=== PATIENT | female | born 1990 | race Caucasian/White ===

== ENCOUNTER 2020-02-03 16:20 | Inpatient (IN) ==
[2020-02-03] MEDS ORDERED: Gadolinium Contrast Agent (WT Based) IV PRN (17:23)
[2020-02-03] MEDS ORDERED: Orphenadrine 60 MG/2 ML VIAL IM ONE (17:25)
[2020-02-03 18:06] LABS: Bilirubin,Urine Negative (Negative); Blood,Urine Negative (Negative); Clarity,Urine Clear (Clear); Color,Urine Light-Yellow (Yellow); Glucose,Urine (UA) Normal (Normal); Ketones,Urine Negative (Negative); Leukocyte Esterase,Urine Negative (Negative); Mucus,Urine Few per lpf (None-Few); Nitrite,Urine Negative (Negative); Protein,Urine 100 mg/dL (Neg-Trace); RBC,Urine 0-3 per hpf (0-3); Specific Gravity,Urine 1.016 (1.010-1.025); Squamous Epithelial Cell,Urine Few per hpf (None-Few); Urobilinogen,Urine Normal (Normal)
[2020-02-03 18:22] LABS: Basophils % 0.3 %; Eosinophils % 0.2 %; Hemoglobin 14.8 g/dL (11.5-15.4); Immature Granulocytes % 0.6 % (0-4); Lymphocytes # 1.3 K/mcL (0.6-4.6); Lymphocytes % 10.3 %; Mean Corpuscular HGB Conc 34.4 g/dL (31.6-35.5); Mean Corpuscular Hemoglobin 30.3 pg (28.0-33.3); Mean Corpuscular Volume 87.9 fL (83.0-100.0); Mean Platelet Volume 9.8 fL (9.4-12.4); Monocytes # 0.2 K/mcL (0.0-1.3); Monocytes % 1.9 %; Platelet Count 370 K/mcL (140-400); Red Blood Count 4.89 M/mcL (3.82-4.97); Segmented Neutrophils % 86.7 %; White Blood Count 12.7 K/mcL (4.3-11.1)
[2020-02-03 18:40] LABS: BUN/Creatinine Ratio 26 (6-26); Blood Urea Nitrogen 13 mg/dL (6-20); Calcium 9.9 mg/dL (8.6-10.3); Carbon Dioxide 28 mEq/L (23-29); Chloride 100 mEq/L (98-107); Glucose 125 mg/dL (70-105); Osmolality,Calculated 286 (280-300); Potassium 3.8 mEq/L (3.5-5.1); Sodium 137 mEq/L (136-145); eGFR For African Americans > 60 (> 60); eGFR For Non-African Americans > 60 (> 60)
[2020-02-03] MEDS ORDERED: *HR* HYDROmorphone (PF) 1 MG/ML SYRINGE IVP ONE (18:41)
[2020-02-03] MEDS ORDERED: *HR* FentaNYL (PF) 100 MCG/2 ML VIAL IVP STA (20:57)
[2020-02-03] MEDS ORDERED: *HR* FentaNYL (PF) 100 MCG/2 ML VIAL IVP ONE (22:30)
[2020-02-03] MEDS ORDERED: Ketorolac 15 MG/ML VIAL IVP PRN (22:37)
[2020-02-03] MEDS ORDERED: Ondansetron 4 MG/2 ML VIAL IVP PRN (22:37)
[2020-02-03] MEDS ORDERED: Naloxone 0.4 MG/ML INJ IVP PRN (22:37)
[2020-02-03] MEDS ORDERED: D5% in Water 1,000 ML IVC PRN (22:40)
[2020-02-03] MEDS ORDERED: Dextrose Gel 15 GM/37.5 ML TUBE PO PRN ×2 (22:40)
[2020-02-03] MEDS ORDERED: *HR* Dextrose 50 % in Water (Vial) 50 ML VIAL IVP PRN (22:40)
[2020-02-03] MEDS ORDERED: Gabapentin 300 MG CAPSULE PO ONE (23:52)
[2020-02-04] MEDS: Insulin LISPRO 300 UNITS/3 ML VIAL SQ SCH ×5 (00:06→16:51)
[2020-02-04] MEDS: Ringers Solution, Lactated 1,000 ML IVC SCH ×2 (00:17→07:46)
[2020-02-04] MEDS: *HR* HYDROmorphone (PF) 1 MG/ML SYRINGE IVP PRN ×10 (00:17→23:20)
[2020-02-04 05:59] LABS: Basophils % 0.3 %; Eosinophils # 0.2 K/mcL (0.0-0.6); Eosinophils % 1.4 %; Hematocrit 40.2 % (35.3-44.9); Hemoglobin 13.8 g/dL (11.5-15.4); Immature Granulocytes % 0.5 % (0-4); Lymphocytes # 3.3 K/mcL (0.6-4.6); Lymphocytes % 27.8 %; Mean Corpuscular HGB Conc 34.3 g/dL (31.6-35.5); Mean Corpuscular Hemoglobin 31.2 pg (28.0-33.3); Mean Platelet Volume 9.9 fL (9.4-12.4); Monocytes # 0.7 K/mcL (0.0-1.3); Monocytes % 5.8 %; Neutrophils # 7.6 K/mcL (1.6-8.9); Platelet Count 328 K/mcL (140-400); Red Blood Count 4.42 M/mcL (3.82-4.97); Segmented Neutrophils % 64.2 %; White Blood Count 11.8 K/mcL (4.3-11.1)
[2020-02-04 06:03] LABS: INR 1.1; Prothrombin Time 12.9 Seconds (9.4-12.1)
[2020-02-04 06:20] LABS: BUN/Creatinine Ratio 34 (6-26); Blood Urea Nitrogen 17 mg/dL (6-20); Calcium 9.7 mg/dL (8.6-10.3); Carbon Dioxide 28 mEq/L (23-29); Chloride 101 mEq/L (98-107); Glucose 94 mg/dL (70-105); Magnesium 2.2 mg/dL (1.6-2.6); Osmolality,Calculated 289 (280-300); Potassium 3.3 mEq/L (3.5-5.1); Sodium 139 mEq/L (136-145); eGFR For African Americans > 60 (> 60); eGFR For Non-African Americans > 60 (> 60)
[2020-02-04] MEDS: hydroCHLOROthiazide 25 MG TABLET PO SCH (07:37)
[2020-02-04] MEDS ORDERED: *HR* OxyCODONE Immed Rel 5 MG TABLET PO PRN (10:47)
[2020-02-04] MEDS ORDERED: Potassium Chloride Elixir 20 MEQ/15 ML UDC PO ONE (11:15)
[2020-02-04] MEDS: *HR* OxyCODONE Immed Rel 5 MG TABLET PO PRN ×3 (11:35→21:02)
[2020-02-04] MEDS: *HR* Heparin 5,000 UNIT/ML VIAL SQ SCH (16:14)
[2020-02-04] MEDS ORDERED: Ketorolac 30 MG/ML VIAL IVP ONE (16:21)
[2020-02-04] MEDS: Insulin DETEMIR 100 UNIT/ML X5UNITS SQ SCH (21:06)
[2020-02-05] MEDS: *HR* OxyCODONE Immed Rel 5 MG TABLET PO PRN ×5 (01:18→21:20)
[2020-02-05] MEDS: *HR* HYDROmorphone (PF) 1 MG/ML SYRINGE IVP PRN ×8 (02:44→22:14)
[2020-02-05] MEDS: *HR* Heparin 5,000 UNIT/ML VIAL SQ SCH ×2 (06:23→17:43)
[2020-02-05] MEDS: Insulin LISPRO 300 UNITS/3 ML VIAL SQ SCH ×3 (07:25→17:20)
[2020-02-05] MEDS: hydroCHLOROthiazide 25 MG TABLET PO SCH (07:25)
[2020-02-05] MEDS: predniSONE 20 MG TABLET PO SCH (14:34)
[2020-02-05] MEDS: tiZANidine 4 MG TABLET PO PRN (14:34)
[2020-02-05] MEDS: Insulin DETEMIR 100 UNIT/ML X5UNITS SQ SCH (19:51)
[2020-02-06] MEDS: tiZANidine 4 MG TABLET PO PRN ×2 (00:02→18:01)
[2020-02-06] MEDS: *HR* HYDROmorphone (PF) 1 MG/ML SYRINGE IVP PRN ×7 (01:02→23:55)
[2020-02-06] MEDS: *HR* OxyCODONE Immed Rel 5 MG TABLET PO PRN (03:01)
[2020-02-06] MEDS: *HR* Heparin 5,000 UNIT/ML VIAL SQ SCH ×2 (05:25→18:55)
[2020-02-06 06:59] LABS: Hematocrit 36.7 % (35.3-44.9); Hemoglobin 12.6 g/dL (11.5-15.4); Mean Corpuscular HGB Conc 34.3 g/dL (31.6-35.5); Mean Corpuscular Hemoglobin 31.3 pg (28.0-33.3); Mean Corpuscular Volume 91.3 fL (83.0-100.0); Mean Platelet Volume 9.6 fL (9.4-12.4); Platelet Count 265 K/mcL (140-400); Red Blood Count 4.02 M/mcL (3.82-4.97); White Blood Count 9.5 K/mcL (4.3-11.1)
[2020-02-06 07:22] LABS: BUN/Creatinine Ratio 35 (6-26); Blood Urea Nitrogen 17 mg/dL (6-20); Calcium 9.6 mg/dL (8.6-10.3); Carbon Dioxide 29 mEq/L (23-29); Chloride 102 mEq/L (98-107); Glucose 93 mg/dL (70-105); Osmolality,Calculated 287 (280-300); Potassium 4.1 mEq/L (3.5-5.1); Sodium 138 mEq/L (136-145); eGFR For African Americans > 60 (> 60); eGFR For Non-African Americans > 60 (> 60)
[2020-02-06] MEDS: hydroCHLOROthiazide 25 MG TABLET PO SCH (08:48)
[2020-02-06] MEDS: predniSONE 20 MG TABLET PO SCH (08:50)
[2020-02-06] MEDS: Insulin LISPRO 300 UNITS/3 ML VIAL SQ SCH ×3 (09:27→17:13)
[2020-02-06] MEDS: Insulin DETEMIR 100 UNIT/ML X5UNITS SQ SCH (21:38)
[2020-02-07] MEDS: Acetaminophen 325 MG TABLET PO PRN (02:30)
[2020-02-07 02:36] LABS: Hematocrit 38.1 % (35.3-44.9); Hemoglobin 12.7 g/dL (11.5-15.4); Mean Corpuscular HGB Conc 33.3 g/dL (31.6-35.5); Mean Corpuscular Hemoglobin 30.4 pg (28.0-33.3); Mean Corpuscular Volume 91.1 fL (83.0-100.0); Mean Platelet Volume 9.9 fL (9.4-12.4); Platelet Count 274 K/mcL (140-400); Red Blood Count 4.18 M/mcL (3.82-4.97); White Blood Count 10.4 K/mcL (4.3-11.1)
[2020-02-07 02:53] LABS: BUN/Creatinine Ratio 38 (6-26); Blood Urea Nitrogen 20 mg/dL (6-20); Calcium 9.6 mg/dL (8.6-10.3); Carbon Dioxide 28 mEq/L (23-29); Chloride 101 mEq/L (98-107); Glucose 97 mg/dL (70-105); Osmolality,Calculated 287 (280-300); Potassium 3.9 mEq/L (3.5-5.1); Sodium 137 mEq/L (136-145); eGFR For African Americans > 60 (> 60); eGFR For Non-African Americans > 60 (> 60)
[2020-02-07] MEDS: *HR* Heparin 5,000 UNIT/ML VIAL SQ SCH ×2 (05:11→18:20)
[2020-02-07] MEDS: *HR* OxyCODONE Immed Rel 5 MG TABLET PO PRN ×5 (05:12→22:51)
[2020-02-07] MEDS: *HR* HYDROmorphone (PF) 1 MG/ML SYRINGE IVP PRN (06:48)
[2020-02-07] MEDS: Insulin LISPRO 300 UNITS/3 ML VIAL SQ SCH ×3 (07:42→18:26)
[2020-02-07] MEDS: predniSONE 20 MG TABLET PO SCH (07:49)
[2020-02-07] MEDS: hydroCHLOROthiazide 25 MG TABLET PO SCH (07:49)
[2020-02-07] MEDS: MethylPREDNISolone 40 MG/ML VIAL IVP SCH (18:20)
[2020-02-07] MEDS: Gabapentin 300 MG CAPSULE PO SCH (21:20)
[2020-02-07] MEDS: tiZANidine 4 MG TABLET PO PRN (21:20)
[2020-02-07] MEDS: Insulin DETEMIR 100 UNIT/ML X5UNITS SQ SCH (22:52)
[2020-02-08] MEDS: MethylPREDNISolone 40 MG/ML VIAL IVP SCH ×4 (00:50→23:40)
[2020-02-08] MEDS: *HR* OxyCODONE Immed Rel 5 MG TABLET PO PRN ×5 (02:59→22:23)
[2020-02-08] MEDS: Acetaminophen 325 MG TABLET PO PRN (05:35)
[2020-02-08] MEDS: *HR* Heparin 5,000 UNIT/ML VIAL SQ SCH ×2 (05:35→17:33)
[2020-02-08] MEDS: tiZANidine 4 MG TABLET PO PRN ×3 (05:35→23:40)
[2020-02-08] MEDS: Insulin LISPRO 300 UNITS/3 ML VIAL SQ SCH ×3 (08:38→17:37)
[2020-02-08] MEDS: hydroCHLOROthiazide 25 MG TABLET PO SCH (08:39)
[2020-02-08] MEDS: Gabapentin 300 MG CAPSULE PO SCH ×3 (08:39→22:11)
[2020-02-08] MEDS: Insulin DETEMIR 100 UNIT/ML X5UNITS SQ SCH (22:11)
[2020-02-09] MEDS: *HR* Heparin 5,000 UNIT/ML VIAL SQ SCH ×2 (05:46→20:39)
[2020-02-09] MEDS: *HR* OxyCODONE Immed Rel 5 MG TABLET PO PRN ×4 (05:50→20:50)
[2020-02-09] MEDS: MethylPREDNISolone 40 MG/ML VIAL IVP SCH ×3 (10:24→23:54)
[2020-02-09] MEDS: Insulin LISPRO 300 UNITS/3 ML VIAL SQ SCH ×3 (10:27→16:02)
[2020-02-09] MEDS: hydroCHLOROthiazide 25 MG TABLET PO SCH (10:27)
[2020-02-09] MEDS: Gabapentin 300 MG CAPSULE PO SCH ×3 (10:30→20:40)
[2020-02-09] MEDS: tiZANidine 4 MG TABLET PO PRN ×2 (10:43→20:50)
[2020-02-09] MEDS: Insulin DETEMIR 100 UNIT/ML X5UNITS SQ SCH (21:50)
[2020-02-10] MEDS: *HR* OxyCODONE Immed Rel 5 MG TABLET PO PRN ×4 (00:53→13:20)
[2020-02-10] MEDS: *HR* Heparin 5,000 UNIT/ML VIAL SQ SCH ×2 (05:30→17:05)
[2020-02-10] MEDS: Insulin LISPRO 300 UNITS/3 ML VIAL SQ SCH ×3 (07:54→17:07)
[2020-02-10] MEDS: tiZANidine 4 MG TABLET PO PRN ×2 (08:14→17:04)
[2020-02-10] MEDS: Acetaminophen 325 MG TABLET PO PRN ×2 (08:14→17:04)
[2020-02-10] MEDS: MethylPREDNISolone 40 MG/ML VIAL IVP SCH ×2 (08:14→17:09)
[2020-02-10] MEDS: Gabapentin 300 MG CAPSULE PO SCH ×3 (08:14→21:24)
[2020-02-10] MEDS: hydroCHLOROthiazide 25 MG TABLET PO SCH (08:14)
[2020-02-10] MEDS: Sennosides/Docusate Sodium TABLET PO SCH (17:03)
[2020-02-10] MEDS: *HR* OxyCODONE Immed Rel 15 MG TABLET PO PRN ×2 (17:04→21:24)
[2020-02-10] MEDS: Insulin DETEMIR 100 UNIT/ML X5UNITS SQ SCH (21:24)
[2020-02-11] MEDS: Acetaminophen 325 MG TABLET PO PRN ×2 (00:15→12:32)
[2020-02-11] MEDS: *HR* OxyCODONE Immed Rel 15 MG TABLET PO PRN ×5 (01:43→20:01)
[2020-02-11] MEDS: tiZANidine 4 MG TABLET PO PRN ×3 (01:44→20:02)
[2020-02-11] MEDS: MethylPREDNISolone 40 MG/ML VIAL IVP SCH (05:52)
[2020-02-11] MEDS: *HR* Heparin 5,000 UNIT/ML VIAL SQ SCH ×2 (05:52→17:19)
[2020-02-11] MEDS: Insulin LISPRO 300 UNITS/3 ML VIAL SQ SCH ×3 (07:42→17:19)
[2020-02-11] MEDS: hydroCHLOROthiazide 25 MG TABLET PO SCH (08:45)
[2020-02-11] MEDS: Gabapentin 300 MG CAPSULE PO SCH ×3 (08:45→21:23)
[2020-02-11] MEDS: Sennosides/Docusate Sodium TABLET PO SCH (08:45)
[2020-02-11] MEDS: predniSONE 20 MG TABLET PO SCH (14:52)
[2020-02-11] MEDS: Insulin DETEMIR 100 UNIT/ML X5UNITS SQ SCH (20:02)
[2020-02-11] MEDS: polyethylene glycoL 3350 17 GM POWD.PACK PO PRN (21:23)
[2020-02-11] MEDS ORDERED: Milk and Molasses Enema 200 ML RC ONE (22:17)
[2020-02-11] MEDS: *HR* HYDROmorphone (PF) 1 MG/ML SYRINGE IVP PRN (22:46)
[2020-02-12] MEDS: *HR* OxyCODONE Immed Rel 15 MG TABLET PO PRN ×4 (01:20→18:33)
[2020-02-12] MEDS: *HR* HYDROmorphone (PF) 1 MG/ML SYRINGE IVP PRN ×6 (04:01→20:52)
[2020-02-12] MEDS: *HR* Heparin 5,000 UNIT/ML VIAL SQ SCH ×2 (05:54→16:31)
[2020-02-12] MEDS: tiZANidine 4 MG TABLET PO PRN ×2 (05:56→14:15)
[2020-02-12] MEDS: Insulin LISPRO 300 UNITS/3 ML VIAL SQ SCH ×3 (07:29→16:39)
[2020-02-12] MEDS: Gabapentin 300 MG CAPSULE PO SCH ×3 (08:21→20:51)
[2020-02-12] MEDS: hydroCHLOROthiazide 25 MG TABLET PO SCH (08:21)
[2020-02-12] MEDS: predniSONE 20 MG TABLET PO SCH (08:21)
[2020-02-12] MEDS: Sennosides/Docusate Sodium TABLET PO SCH (08:22)
[2020-02-12] MEDS ORDERED: Milk and Molasses Enema 200 ML RC ONE (09:02)
[2020-02-12] MEDS ORDERED: Ketorolac 30 MG/ML VIAL IVP ONE (09:27)
[2020-02-12] MEDS: Acetaminophen 325 MG TABLET PO PRN (14:18)
[2020-02-12] MEDS: *HR* LORazepam 1 MG TABLET PO PRN ×2 (17:36→22:20)
[2020-02-12] MEDS: Insulin DETEMIR 100 UNIT/ML X5UNITS SQ SCH (20:52)
[2020-02-13] MEDS: *HR* OxyCODONE Immed Rel 15 MG TABLET PO PRN ×5 (00:20→22:35)
[2020-02-13] MEDS: tiZANidine 4 MG TABLET PO PRN ×2 (00:20→19:48)
[2020-02-13] MEDS: *HR* HYDROmorphone (PF) 1 MG/ML SYRINGE IVP PRN ×5 (04:02→19:48)
[2020-02-13] MEDS: polyethylene glycoL 3350 17 GM POWD.PACK PO PRN (04:07)
[2020-02-13] MEDS: *HR* LORazepam 1 MG TABLET PO PRN ×4 (05:15→22:35)
[2020-02-13] MEDS: *HR* Heparin 5,000 UNIT/ML VIAL SQ SCH ×2 (05:15→17:38)
[2020-02-13 05:57] LABS: Hematocrit 42.4 % (35.3-44.9); Mean Corpuscular HGB Conc 34.7 g/dL (31.6-35.5); Mean Corpuscular Hemoglobin 31.1 pg (28.0-33.3); Mean Corpuscular Volume 89.8 fL (83.0-100.0); Mean Platelet Volume 10.3 fL (9.4-12.4); Platelet Count 332 K/mcL (140-400); Red Blood Count 4.72 M/mcL (3.82-4.97); Red Cell Distribution Width 11.9 % (11.5-14.5)
[2020-02-13 05:58] LABS: Hemoglobin 14.7 g/dL (11.5-15.4)
[2020-02-13 06:24] LABS: BUN/Creatinine Ratio 41 (6-26); Blood Urea Nitrogen 24 mg/dL (6-20); Calcium 9.8 mg/dL (8.6-10.3); Carbon Dioxide 31 mEq/L (23-29); Chloride 97 mEq/L (98-107); Glucose 96 mg/dL (70-105); Osmolality,Calculated 290 (280-300); Potassium 3.4 mEq/L (3.5-5.1); Sodium 138 mEq/L (136-145); eGFR For African Americans > 60 (> 60); eGFR For Non-African Americans > 60 (> 60)
[2020-02-13] MEDS: Insulin LISPRO 300 UNITS/3 ML VIAL SQ SCH ×3 (08:28→17:38)
[2020-02-13] MEDS: predniSONE 20 MG TABLET PO SCH (08:40)
[2020-02-13] MEDS: Sennosides/Docusate Sodium TABLET PO SCH (08:40)
[2020-02-13] MEDS: hydroCHLOROthiazide 25 MG TABLET PO SCH (08:40)
[2020-02-13] MEDS: Gabapentin 300 MG CAPSULE PO SCH ×3 (08:40→19:48)
[2020-02-13] MEDS ORDERED: methylPREDNISolone 125 MG/2 ML VIAL IVP ONE (10:17)
[2020-02-13] MEDS ORDERED: Methylnaltrexone 12 MG/0.6 ML SYRINGE SQ ONE (16:55)
[2020-02-13] MEDS: Insulin DETEMIR 100 UNIT/ML X5UNITS SQ SCH (22:38)
[2020-02-14] MEDS: *HR* HYDROmorphone (PF) 1 MG/ML SYRINGE IVP PRN ×5 (01:01→20:17)
[2020-02-14] MEDS ORDERED: CLEAR EYES NATURAL TEARS 15 ML BOTTLE BOTH EYES PRN (01:11)
[2020-02-14] MEDS: *HR* OxyCODONE Immed Rel 15 MG TABLET PO PRN ×5 (03:10→22:14)
[2020-02-14] MEDS: *HR* LORazepam 1 MG TABLET PO PRN ×5 (03:10→22:14)
[2020-02-14 05:27] LABS: Hematocrit 41.4 % (35.3-44.9); Hemoglobin 13.8 g/dL (11.5-15.4); Mean Corpuscular HGB Conc 33.3 g/dL (31.6-35.5); Mean Platelet Volume 10.6 fL (9.4-12.4); Platelet Count 302 K/mcL (140-400); Red Cell Distribution Width 11.9 % (11.5-14.5); White Blood Count 17.5 K/mcL (4.3-11.1)
[2020-02-14 05:38] LABS: BUN/Creatinine Ratio 38 (6-26); Blood Urea Nitrogen 20 mg/dL (6-20); Calcium 9.5 mg/dL (8.6-10.3); Carbon Dioxide 29 mEq/L (23-29); Chloride 100 mEq/L (98-107); Glucose 128 mg/dL (70-105); Osmolality,Calculated 290 (280-300); Potassium 3.5 mEq/L (3.5-5.1); Sodium 138 mEq/L (136-145); eGFR For African Americans > 60 (> 60); eGFR For Non-African Americans > 60 (> 60)
[2020-02-14] MEDS: *HR* Heparin 5,000 UNIT/ML VIAL SQ SCH ×2 (05:42→17:45)
[2020-02-14] MEDS: Insulin LISPRO 300 UNITS/3 ML VIAL SQ SCH ×3 (07:56→17:44)
[2020-02-14] MEDS: Gabapentin 300 MG CAPSULE PO SCH ×3 (08:02→20:17)
[2020-02-14] MEDS: predniSONE 20 MG TABLET PO SCH (08:02)
[2020-02-14] MEDS: Sennosides/Docusate Sodium TABLET PO SCH (08:02)
[2020-02-14] MEDS: hydroCHLOROthiazide 25 MG TABLET PO SCH (08:02)
[2020-02-14] MEDS: polyethylene glycoL 3350 17 GM POWD.PACK PO PRN (08:17)
[2020-02-14] MEDS: Insulin DETEMIR 100 UNIT/ML X5UNITS SQ SCH (20:18)
[2020-02-14] MEDS: tiZANidine 4 MG TABLET PO PRN (22:14)
[2020-02-14] MEDS ORDERED: Lactulose Oral Soln 20 GM/30 ML UDC PO ONE (22:50)
[2020-02-15] MEDS: *HR* HYDROmorphone (PF) 1 MG/ML SYRINGE IVP PRN ×7 (01:35→20:38)
[2020-02-15] MEDS: *HR* LORazepam 1 MG TABLET PO PRN ×5 (03:01→23:02)
[2020-02-15] MEDS: *HR* OxyCODONE Immed Rel 15 MG TABLET PO PRN (03:02)
[2020-02-15] MEDS ORDERED: Milk and Molasses Enema 200 ML RC ONE (03:55)
[2020-02-15] MEDS: *HR* Heparin 5,000 UNIT/ML VIAL SQ SCH ×2 (06:09→17:56)
[2020-02-15] MEDS: tiZANidine 4 MG TABLET PO PRN ×2 (06:09→23:02)
[2020-02-15] MEDS: Insulin LISPRO 300 UNITS/3 ML VIAL SQ SCH ×3 (08:02→16:09)
[2020-02-15] MEDS: Gabapentin 300 MG CAPSULE PO SCH ×3 (08:04→21:14)
[2020-02-15] MEDS: *HR* OxyCODONE Immed Rel 5 MG TABLET PO PRN (08:04)
[2020-02-15] MEDS: hydroCHLOROthiazide 25 MG TABLET PO SCH (08:04)
[2020-02-15] MEDS: predniSONE 20 MG TABLET PO SCH (08:05)
[2020-02-15] MEDS: Sennosides/Docusate Sodium TABLET PO SCH (08:06)
[2020-02-15] MEDS: polyethylene glycoL 3350 17 GM POWD.PACK PO PRN (09:43)
[2020-02-15] MEDS: Insulin DETEMIR 100 UNIT/ML X5UNITS SQ SCH (21:14)
[2020-02-15] MEDS ORDERED: hydrOXYzine pamoate 25 MG CAPSULE PO STA (23:53)
[2020-02-16] MEDS: *HR* HYDROmorphone (PF) 1 MG/ML SYRINGE IVP PRN ×3 (04:09→14:06)
[2020-02-16] MEDS: *HR* LORazepam 1 MG TABLET PO PRN ×4 (05:50→21:37)
[2020-02-16] MEDS: *HR* Heparin 5,000 UNIT/ML VIAL SQ SCH ×2 (05:50→17:23)
[2020-02-16] MEDS: *HR* OxyCODONE Immed Rel 15 MG TABLET PO PRN ×3 (06:37→16:14)
[2020-02-16] MEDS: Insulin LISPRO 300 UNITS/3 ML VIAL SQ SCH ×3 (07:33→17:23)
[2020-02-16] MEDS: hydroCHLOROthiazide 25 MG TABLET PO SCH (08:20)
[2020-02-16] MEDS: predniSONE 20 MG TABLET PO SCH (08:26)
[2020-02-16] MEDS: Gabapentin 300 MG CAPSULE PO SCH ×3 (08:26→21:33)
[2020-02-16] MEDS: Sennosides/Docusate Sodium TABLET PO SCH (08:26)
[2020-02-16] MEDS: polyethylene glycoL 3350 17 GM POWD.PACK PO PRN (08:33)
[2020-02-16] MEDS ORDERED: Methylnaltrexone 12 MG/0.6 ML SYRINGE SQ ONE (11:15)
[2020-02-16] MEDS: tiZANidine 4 MG TABLET PO PRN (18:35)
[2020-02-16] MEDS: *HR* OxyCODONE Immed Rel 5 MG TABLET PO PRN (20:14)
[2020-02-16] MEDS: Insulin DETEMIR 100 UNIT/ML X5UNITS SQ SCH (21:37)
[2020-02-16] MEDS ORDERED: *HR* LORazepam 2 MG/ML VIAL IVP ONE (23:27)
[2020-02-17] MEDS: *HR* OxyCODONE Immed Rel 5 MG TABLET PO PRN ×5 (01:31→20:46)
[2020-02-17] MEDS ORDERED: *HR* HYDROmorphone (PF) 1 MG/ML SYRINGE IVP ONE (01:48)
[2020-02-17] MEDS: tiZANidine 4 MG TABLET PO PRN ×3 (04:03→23:19)
[2020-02-17] MEDS: *HR* Heparin 5,000 UNIT/ML VIAL SQ SCH ×2 (06:02→17:49)
[2020-02-17] MEDS: Sennosides/Docusate Sodium TABLET PO SCH (07:59)
[2020-02-17] MEDS: hydroCHLOROthiazide 25 MG TABLET PO SCH (07:59)
[2020-02-17] MEDS: predniSONE 20 MG TABLET PO SCH (07:59)
[2020-02-17] MEDS: Gabapentin 300 MG CAPSULE PO SCH ×3 (07:59→20:46)
[2020-02-17] MEDS: *HR* LORazepam 1 MG TABLET PO PRN ×4 (07:59→20:46)
[2020-02-17] MEDS: Insulin LISPRO 300 UNITS/3 ML VIAL SQ SCH ×3 (08:15→16:38)
[2020-02-17] MEDS: *HR* HYDROmorphone (PF) 1 MG/ML SYRINGE IVP PRN ×4 (08:59→21:41)
[2020-02-17] MEDS ORDERED: Fluconazole 150 MG TABLET PO PRN (14:18)
[2020-02-17] MEDS: polyethylene glycoL 3350 17 GM POWD.PACK PO PRN (14:39)
[2020-02-17] MEDS: Insulin DETEMIR 100 UNIT/ML X5UNITS SQ SCH (20:54)
[2020-02-17] MEDS: clonazePAM 1 MG TABLET PO SCH (21:35)
[2020-02-18] MEDS: Acetaminophen 325 MG TABLET PO PRN ×4 (00:11→23:57)
[2020-02-18] MEDS: *HR* OxyCODONE Immed Rel 5 MG TABLET PO PRN ×6 (00:48→21:48)
[2020-02-18 01:04] LABS: Basophils % 0.2 %; Eosinophils # 0.1 K/mcL (0.0-0.6); Eosinophils % 0.5 %; Hematocrit 41.5 % (35.3-44.9); Hemoglobin 13.7 g/dL (11.5-15.4); Lymphocytes # 4.6 K/mcL (0.6-4.6); Lymphocytes % 27.6 %; Mean Corpuscular Volume 90.8 fL (83.0-100.0); Mean Platelet Volume 10.2 fL (9.4-12.4); Monocytes # 0.8 K/mcL (0.0-1.3); Monocytes % 4.7 %; Platelet Count 318 K/mcL (140-400); Red Blood Count 4.57 M/mcL (3.82-4.97); Red Cell Distribution Width 12.1 % (11.5-14.5); White Blood Count 16.7 K/mcL (4.3-11.1)
[2020-02-18 01:24] LABS: BUN/Creatinine Ratio 41 (6-26); Blood Urea Nitrogen 26 mg/dL (6-20); Calcium 9.2 mg/dL (8.6-10.3); Carbon Dioxide 27 mEq/L (23-29); Chloride 99 mEq/L (98-107); Glucose 210 mg/dL (70-105); Osmolality,Calculated 293 (280-300); Potassium 3.5 mEq/L (3.5-5.1); Sodium 136 mEq/L (136-145); eGFR For African Americans > 60 (> 60); eGFR For Non-African Americans > 60 (> 60)
[2020-02-18 01:55] LABS: Platelet Estimate Normal (Normal); Reactive Lymphocytes Present (Not Present)
[2020-02-18] MEDS: *HR* HYDROmorphone (PF) 1 MG/ML SYRINGE IVP PRN ×5 (04:51→23:56)
[2020-02-18] MEDS: *HR* Heparin 5,000 UNIT/ML VIAL SQ SCH ×2 (05:52→16:40)
[2020-02-18] MEDS: Insulin LISPRO 300 UNITS/3 ML VIAL SQ SCH ×3 (08:13→16:40)
[2020-02-18] MEDS: Gabapentin 300 MG CAPSULE PO SCH ×3 (08:18→19:39)
[2020-02-18] MEDS: hydroCHLOROthiazide 25 MG TABLET PO SCH (08:19)
[2020-02-18] MEDS: clonazePAM 1 MG TABLET PO SCH ×2 (08:19→19:39)
[2020-02-18] MEDS: predniSONE 20 MG TABLET PO SCH (08:19)
[2020-02-18] MEDS: Sennosides/Docusate Sodium TABLET PO SCH (08:19)
[2020-02-18] MEDS: tiZANidine 4 MG TABLET PO PRN ×2 (08:20→16:41)
[2020-02-18] MEDS: polyethylene glycoL 3350 17 GM POWD.PACK PO PRN (11:38)
[2020-02-18] MEDS: hydrOXYzine pamoate 25 MG CAPSULE PO PRN ×2 (13:05→23:55)
[2020-02-18] MEDS: Insulin DETEMIR 100 UNIT/ML X5UNITS SQ SCH (21:48)
[2020-02-19] MEDS: *HR* OxyCODONE Immed Rel 5 MG TABLET PO PRN ×4 (02:13→18:40)
[2020-02-19] MEDS: tiZANidine 4 MG TABLET PO PRN ×3 (02:13→21:03)
[2020-02-19] MEDS: *HR* HYDROmorphone (PF) 1 MG/ML SYRINGE IVP PRN ×4 (06:04→21:02)
[2020-02-19] MEDS: *HR* Heparin 5,000 UNIT/ML VIAL SQ SCH ×2 (06:05→18:40)
[2020-02-19] MEDS: Insulin LISPRO 300 UNITS/3 ML VIAL SQ SCH ×3 (08:20→16:32)
[2020-02-19] MEDS: Gabapentin 300 MG CAPSULE PO SCH ×3 (08:26→21:03)
[2020-02-19] MEDS: predniSONE 20 MG TABLET PO SCH (08:27)
[2020-02-19] MEDS: clonazePAM 1 MG TABLET PO SCH ×2 (08:27→21:03)
[2020-02-19] MEDS: hydroCHLOROthiazide 25 MG TABLET PO SCH (08:27)
[2020-02-19] MEDS: Sennosides/Docusate Sodium TABLET PO SCH (08:27)
[2020-02-19] MEDS: hydrOXYzine pamoate 25 MG CAPSULE PO PRN ×2 (09:47→18:40)
[2020-02-19] MEDS ORDERED: *HR* LORazepam 2 MG/ML VIAL IVP ONE (15:31)
[2020-02-19] MEDS: Acetaminophen 325 MG TABLET PO PRN (16:18)
[2020-02-19 17:43] LABS: Adenovirus Not Detected (Not Detect); Bordetella Pertussis Not Detected (Not Detect); Chlamydophila pneumoniae Not Detected (Not Detect); Coronavirus 229E Not Detected (Not Detect); Coronavirus HKU1 Not Detected (Not Detect); Coronavirus NL63 Not Detected (Not Detect); Coronavirus OC43 Not Detected (Not Detect); Human Metapneumovirus Not Detected (Not Detect); Human Rhinovirus/Enterovirus Not Detected (Not Detect); Influenza A Subtype 2009 H1 Not Detected (Not Detect); Influenza B Not Detected (Not Detect); Mycoplasma pneumoniae Not Detected (Not Detect); Parainfluenza Virus 1 Not Detected (Not Detect); Parainfluenza Virus 2 Not Detected (Not Detect); Parainfluenza Virus 3 Not Detected (Not Detect); Parainfluenza Virus 4 Not Detected (Not Detect); Respiratory Syncytial Virus Not Detected (Not Detect); SARS-CoV-2 Not Detected (Not Detect)
[2020-02-19 18:54] VITALS: BP 137/93
[2020-02-19] MEDS: Insulin DETEMIR 100 UNIT/ML X5UNITS SQ SCH (21:06)
[2020-02-20] MEDS ORDERED: Bacitracin 50,000 UNIT, Polymyxin B Sulfate 500,000 UNIT, Sodium Chloride IRRigation 1,... IR ONE (16:30)
== END 2020-02-19 21:19 | DRG 347 ==
LOC: 3NENU 16:20 → EMEROOARM 16:20 → SUATTDRO 22:31 → 3NENU 23:27 → SUATTDRO 02-04 16:02
PROVIDERS: ADMIT Internal Medicine; ATTEND Internal Medicine

== ENCOUNTER 2020-02-22 14:06 | Observation (INO) ==
[2020-02-22] MEDS ORDERED: *HR* FentaNYL (PF) 100 MCG/2 ML VIAL IVP ONE (14:43)
[2020-02-22] MEDS ORDERED: 0.9 % Sodium Chloride 1,000 ML IVC ONE (14:43)
[2020-02-22 15:11] LABS: Basophils % 0.2 %; Eosinophils # 0.1 K/mcL (0.0-0.6); Eosinophils % 0.3 %; Hematocrit 41.5 % (35.3-44.9); Hemoglobin 13.8 g/dL (11.5-15.4); Mean Corpuscular HGB Conc 33.3 g/dL (31.6-35.5); Mean Corpuscular Hemoglobin 29.7 pg (28.0-33.3); Mean Corpuscular Volume 89.4 fL (83.0-100.0); Mean Platelet Volume 9.6 fL (9.4-12.4); Monocytes # 0.4 K/mcL (0.0-1.3); Monocytes % 2.8 %; Neutrophils # 11.9 K/mcL (1.6-8.9); Platelet Count 329 K/mcL (140-400); Red Blood Count 4.64 M/mcL (3.82-4.97); Red Cell Distribution Width 12.2 % (11.5-14.5); Segmented Neutrophils % 81.7 %; White Blood Count 14.6 K/mcL (4.3-11.1)
[2020-02-22 15:28] LABS: BUN/Creatinine Ratio 40 (6-26); Blood Urea Nitrogen 21 mg/dL (6-20); Calcium 9.9 mg/dL (8.6-10.3); Carbon Dioxide 27 mEq/L (23-29); Chloride 99 mEq/L (98-107); Glucose 124 mg/dL (70-105); Osmolality,Calculated 288 (280-300); Potassium 3.7 mEq/L (3.5-5.1); Sodium 137 mEq/L (136-145); eGFR For African Americans > 60 (> 60); eGFR For Non-African Americans > 60 (> 60)
[2020-02-22 16:05] LABS: Bilirubin,Urine Negative (Negative); Blood,Urine Negative (Negative); Clarity,Urine Clear (Clear); Color,Urine Colorless (Yellow); Glucose,Urine (UA) Normal (Normal); Ketones,Urine Negative (Negative); Leukocyte Esterase,Urine Negative (Negative); Nitrite,Urine Negative (Negative); PH,Urine 6.5 pH Units (5.0-8.0); Protein,Urine Negative (Neg-Trace); Specific Gravity,Urine 1.011 (1.010-1.025); Urobilinogen,Urine Normal (Normal)
[2020-02-22] MEDS ORDERED: *HR* HYDROmorphone 2 MG TABLET PO ONE (16:56)
[2020-02-22] MEDS ORDERED: Dextrose Gel 15 GM/37.5 ML TUBE PO PRN ×2 (16:58)
[2020-02-22] MEDS ORDERED: D5% in Water 1,000 ML IVC PRN (16:58)
[2020-02-22] MEDS ORDERED: *HR* Dextrose 50 % in Water (Vial) 50 ML VIAL IVP PRN (16:58)
[2020-02-22] MEDS ORDERED: Sennosides 8.6 MG TABLET PO PRN (17:00)
[2020-02-22] MEDS ORDERED: polyethylene glycoL 3350 17 GM POWD.PACK PO PRN (17:01)
[2020-02-22] MEDS ORDERED: Acetaminophen 325 MG TABLET PO PRN (17:02)
[2020-02-22] MEDS ORDERED: Ondansetron 4 MG/2 ML VIAL IVP PRN (17:02)
[2020-02-22] MEDS ORDERED: Naloxone 0.4 MG/ML INJ IVP PRN (17:02)
[2020-02-22 17:16] LABS: Activated Partial Thrombo Time 29.6 Seconds (26.0-36.0)
[2020-02-22] MEDS: Insulin LISPRO 300 UNITS/3 ML VIAL SQ SCH (18:10)
[2020-02-22] MEDS ORDERED: *HR* HYDROmorphone 2 MG/ML SYRINGE IVP ONE (20:46)
[2020-02-22] MEDS ORDERED: Insulin LISPRO 300 UNITS/3 ML VIAL SQ SCH (21:00)
[2020-02-23] MEDS: clonazePAM 1 MG TABLET PO SCH ×2 (02:53→08:07)
[2020-02-23] MEDS ORDERED: *HR* LORazepam 2 MG/ML VIAL IVP ONE (03:48)
[2020-02-23] MEDS ORDERED: *HR* HYDROmorphone 2 MG/ML SYRINGE IVP ONE ×2 (04:26→08:55)
[2020-02-23 07:14] LABS: Hematocrit 40.8 % (35.3-44.9); Hemoglobin 13.8 g/dL (11.5-15.4); Mean Corpuscular HGB Conc 33.8 g/dL (31.6-35.5); Mean Corpuscular Hemoglobin 31.2 pg (28.0-33.3); Mean Corpuscular Volume 92.1 fL (83.0-100.0); Mean Platelet Volume 9.9 fL (9.4-12.4); Platelet Count 290 K/mcL (140-400); Red Blood Count 4.43 M/mcL (3.82-4.97); Red Cell Distribution Width 12.3 % (11.5-14.5); White Blood Count 14.1 K/mcL (4.3-11.1)
[2020-02-23 07:33] LABS: BUN/Creatinine Ratio 37 (6-26); Blood Urea Nitrogen 21 mg/dL (6-20); Calcium 9.8 mg/dL (8.6-10.3); Carbon Dioxide 30 mEq/L (23-29); Chloride 99 mEq/L (98-107); Chol/HDL Ratio 4.6 (0-4.9); Cholesterol 236 mg/dL (< 200); Glucose 78 mg/dL (70-105); HDL Cholesterol 51 mg/dL (40-59); LDL Cholesterol,Calculated 131 mg/dL (< 100); Magnesium 1.9 mg/dL (1.6-2.6); Osmolality,Calculated 288 (280-300); Phosphorous 5.2 mg/dL (2.7-4.5); Potassium 3.5 mEq/L (3.5-5.1); Sodium 138 mEq/L (136-145); Triglycerides 270 mg/dL (< 150); eGFR For African Americans > 60 (> 60); eGFR For Non-African Americans > 60 (> 60)
[2020-02-23] MEDS: Insulin LISPRO 300 UNITS/3 ML VIAL SQ SCH ×3 (08:08→17:12)
[2020-02-23 08:52] LABS: Estimated Average Glucose 128 mg/dl
[2020-02-23] MEDS ORDERED: polyethylene glycoL 3350 17 GM POWD.PACK PO PRN (08:53)
[2020-02-23] MEDS ORDERED: hydrOXYzine pamoate 25 MG CAPSULE PO PRN (08:53)
[2020-02-23] MEDS ORDERED: Sennosides/Docusate Sodium TABLET PO SCH (09:00)
[2020-02-23] MEDS: Gabapentin 300 MG CAPSULE PO SCH ×2 (09:11→17:12)
[2020-02-23] MEDS ORDERED: Budesonide/Formoterol 160/4.5 1 PUFF INH IH SCH (10:00)
[2020-02-23] MEDS ORDERED: Albumin Human 5% 0 GM/0 ML IV.SOLN ONE (15:42)
[2020-02-23] MEDS ORDERED: Acetaminophen IV 1,000 MG/100 ML INFUS..BTL ONE (15:43)
[2020-02-23] MEDS ORDERED: Lidocaine -MPF 4% 5 ML AMPUL ONE (15:45)
[2020-02-23] MEDS ORDERED: Ondansetron 4 MG/2 ML VIAL IVP PRN (15:48)
[2020-02-23] MEDS ORDERED: Promethazine 6.25 MG in Water for inj. (sterile) 20 ML IVPB PRN (15:48)
[2020-02-23] MEDS ORDERED: *HR* OxyCODONE Immed Rel 5 MG TABLET PO PRN (15:48)
[2020-02-23] MEDS ORDERED: *HR* Rocuronium Bromide 50 MG/5 ML VIAL ONE ×2 (15:52→17:23)
[2020-02-23] MEDS ORDERED: *HR* Succinylcholine 200 MG/10 ML VIAL IVP ONE (15:52)
[2020-02-23] MEDS ORDERED: Lidocaine -MPF 2% 2 ML VIAL ONE ×2 (15:53→15:57)
[2020-02-23] MEDS ORDERED: Dexamethasone 4 MG/ML VIAL ONE (15:53)
[2020-02-23] MEDS ORDERED: *HR* Midazolam HCl 2 MG/2 ML VIAL ONE ×2 (15:55→16:15)
[2020-02-23] MEDS ORDERED: *HR* Propofol 200 MG/20 ML VIAL IVP ONE (15:55)
[2020-02-23] MEDS ORDERED: *HR* FentaNYL (PF) 100 MCG/2 ML VIAL ONE (15:55)
[2020-02-23] MEDS ORDERED: *HR* HYDROMORPHONE 2 MG/ML VIAL ONE (15:57)
[2020-02-23] MEDS ORDERED: Bacitracin 50,000 UNIT, Polymyxin B Sulfate 500,000 UNIT, Sodium Chloride IRRigation 1,... IR ONE (16:15)
[2020-02-23] MEDS ORDERED: Clindamycin 900 MG/50 ML 900 MG/50 ML IV.SOLN IVPB ONE (16:17)
[2020-02-23] MEDS ORDERED: *HR* Magnesium Sulfate 1 GM/2 ML VIAL ONE (17:17)
[2020-02-23] MEDS: *HR* HYDROmorphone PF 0.5 MG/0.5 ML SYRINGE IVP PRN ×4 (18:43→19:08)
[2020-02-23] MEDS ORDERED: Naloxone 0.4 MG/ML INJ IVP PRN (19:45)
[2020-02-23] MEDS ORDERED: NON-FORMULARY MEDICATION 1 EACH EACH (Oxycodone Hcl 10 MG) PO PRN (19:45)
[2020-02-23] MEDS ORDERED: Sennosides 8.6 MG TABLET PO PRN (19:45)
[2020-02-23] MEDS ORDERED: clonazePAM 1 MG TABLET PO SCH (21:00)
[2020-02-23] MEDS ORDERED: Melatonin 3 MG TABLET PO SCH (21:00)
[2020-02-23] MEDS: *HR* OxyCODONE Immed Rel 5 MG TABLET PO PRN (22:10)
[2020-02-24] MEDS: *HR* HYDROcodone/Acet 5/325 mg TABLET PO PRN (00:08)
[2020-02-24] MEDS: Gabapentin 300 MG CAPSULE PO SCH ×4 (00:08→20:26)
[2020-02-24] MEDS: clonazePAM 1 MG TABLET PO PRN ×2 (00:08→15:42)
[2020-02-24] MEDS: Clindamycin 900 MG/50 ML 900 MG/50 ML IV.SOLN IVPB SCH ×2 (00:11→08:17)
[2020-02-24] MEDS: *HR* OxyCODONE Immed Rel 5 MG TABLET PO PRN ×5 (02:31→19:57)
[2020-02-24] MEDS: hydrOXYzine pamoate 25 MG CAPSULE PO PRN ×2 (02:31→10:33)
[2020-02-24] MEDS: hydroCHLOROthiazide 25 MG TABLET PO SCH (08:19)
[2020-02-24] MEDS ORDERED: *HR* Metformin 500 MG TABLET PO SCH (09:00)
[2020-02-24] MEDS ORDERED: *HR* Dextrose 50 % in Water (Vial) 50 ML VIAL IVP PRN (10:58)
[2020-02-24] MEDS ORDERED: D5% in Water 1,000 ML IVC PRN (10:58)
[2020-02-24] MEDS ORDERED: Dextrose Gel 15 GM/37.5 ML TUBE PO PRN ×2 (10:58)
[2020-02-24] MEDS ORDERED: *HR* LORazepam 2 MG/ML VIAL IVP ONE (11:00)
[2020-02-24] MEDS ORDERED: *HR* HYDROmorphone 2 MG/ML SYRINGE IVP ONE ×2 (11:01→16:55)
[2020-02-24] MEDS: Insulin LISPRO 300 UNITS/3 ML VIAL SQ SCH ×3 (12:37→20:26)
[2020-02-24] MEDS: Diclofenac Sodium (24 HR) 100 MG TABLET PO PRN (14:50)
[2020-02-24] MEDS: *HR* LORazepam 2 MG/ML VIAL IVP PRN (18:09)
[2020-02-24] MEDS: Melatonin 3 MG TABLET PO PRN (21:15)
[2020-02-25] MEDS ORDERED: *HR* HYDROmorphone 2 MG/ML SYRINGE IVP ONE ×2 (00:25→09:23)
[2020-02-25 01:51] LABS: Hematocrit 32.4 % (35.3-44.9); Mean Corpuscular HGB Conc 32.4 g/dL (31.6-35.5); Mean Corpuscular Hemoglobin 30.3 pg (28.0-33.3); Mean Corpuscular Volume 93.6 fL (83.0-100.0); Mean Platelet Volume 9.8 fL (9.4-12.4); Platelet Count 200 K/mcL (140-400); Red Blood Count 3.46 M/mcL (3.82-4.97); Red Cell Distribution Width 12.2 % (11.5-14.5); White Blood Count 9.8 K/mcL (4.3-11.1)
[2020-02-25 01:53] LABS: Hemoglobin 10.5 g/dL (11.5-15.4)
[2020-02-25 02:11] LABS: BUN/Creatinine Ratio 38 (6-26); Blood Urea Nitrogen 23 mg/dL (6-20); Calcium 8.7 mg/dL (8.6-10.3); Carbon Dioxide 29 mEq/L (23-29); Chloride 103 mEq/L (98-107); Glucose 131 mg/dL (70-105); Osmolality,Calculated 293 (280-300); Potassium 3.7 mEq/L (3.5-5.1); Sodium 139 mEq/L (136-145); eGFR For African Americans > 60 (> 60); eGFR For Non-African Americans > 60 (> 60)
[2020-02-25] MEDS: *HR* OxyCODONE Immed Rel 5 MG TABLET PO PRN ×3 (05:28→12:53)
[2020-02-25] MEDS: *HR* LORazepam 2 MG/ML VIAL IVP PRN ×2 (05:29→11:57)
[2020-02-25] MEDS: *HR* HYDROcodone/Acet 5/325 mg TABLET PO PRN ×2 (07:54→14:37)
[2020-02-25] MEDS: Gabapentin 300 MG CAPSULE PO SCH ×3 (07:55→20:39)
[2020-02-25] MEDS: hydrOXYzine pamoate 25 MG CAPSULE PO PRN (07:56)
[2020-02-25] MEDS: hydroCHLOROthiazide 25 MG TABLET PO SCH (07:56)
[2020-02-25] MEDS: Insulin LISPRO 300 UNITS/3 ML VIAL SQ SCH ×4 (07:57→20:39)
[2020-02-25] MEDS ORDERED: Fluconazole 150 MG TABLET PO ONE (12:08)
[2020-02-25] MEDS: Ondansetron 4 MG/2 ML VIAL IVP PRN ×3 (12:52→22:55)
[2020-02-25] MEDS: polyethylene glycoL 3350 17 GM POWD.PACK PO SCH (16:07)
[2020-02-25] MEDS ORDERED: 0.9 % Sodium Chloride 250 ML ONE ×2 (16:15→22:17)
[2020-02-25] MEDS: Morphine PCA 30 MG/ 30 ML 30 ML PCA.VIAL IVC PRN (17:06)
[2020-02-25] MEDS: Acetaminophen 325 MG TABLET PO PRN (18:10)
[2020-02-25] MEDS: Melatonin 3 MG TABLET PO PRN (20:48)
[2020-02-26] MEDS ORDERED: 0.9 % Sodium Chloride 250 ML ONE (02:30)
[2020-02-26] MEDS: polyethylene glycoL 3350 17 GM POWD.PACK PO SCH (07:50)
[2020-02-26] MEDS: Insulin LISPRO 300 UNITS/3 ML VIAL SQ SCH ×4 (07:52→20:33)
[2020-02-26] MEDS: hydroCHLOROthiazide 25 MG TABLET PO SCH (07:52)
[2020-02-26] MEDS: Gabapentin 300 MG CAPSULE PO SCH ×3 (07:52→20:26)
[2020-02-26] MEDS: Ondansetron 4 MG/2 ML VIAL IVP PRN ×2 (08:02→20:25)
[2020-02-26] MEDS: Morphine PCA 30 MG/ 30 ML 30 ML PCA.VIAL IVC PRN ×3 (08:05→19:09)
[2020-02-26] MEDS ORDERED: 0.9 % Sodium Chloride 500 ML ONE (09:28)
[2020-02-26] MEDS: clonazePAM 1 MG TABLET PO PRN (10:34)
[2020-02-26] MEDS: Acetaminophen 325 MG TABLET PO PRN ×3 (10:34→22:44)
[2020-02-26 13:58] LABS: Hematocrit 37.4 % (35.3-44.9)
[2020-02-26 14:14] LABS: Hemoglobin 12.6 g/dL (11.5-15.4)
[2020-02-27 03:16] LABS: Hematocrit 36.1 % (35.3-44.9); Hemoglobin 11.8 g/dL (11.5-15.4); Mean Corpuscular HGB Conc 32.7 g/dL (31.6-35.5); Mean Corpuscular Hemoglobin 30.5 pg (28.0-33.3); Mean Corpuscular Volume 93.3 fL (83.0-100.0); Mean Platelet Volume 9.9 fL (9.4-12.4); Platelet Count 199 K/mcL (140-400); Red Blood Count 3.87 M/mcL (3.82-4.97); Red Cell Distribution Width 12.2 % (11.5-14.5); White Blood Count 5.6 K/mcL (4.3-11.1)
[2020-02-27 03:31] LABS: BUN/Creatinine Ratio 34 (6-26); Blood Urea Nitrogen 20 mg/dL (6-20); Carbon Dioxide 28 mEq/L (23-29); Chloride 100 mEq/L (98-107); Glucose 132 mg/dL (70-105); Osmolality,Calculated 290 (280-300); Potassium 3.9 mEq/L (3.5-5.1); Sodium 138 mEq/L (136-145); eGFR For African Americans > 60 (> 60); eGFR For Non-African Americans > 60 (> 60)
[2020-02-27] MEDS ORDERED: 0.9 % Sodium Chloride 250 ML ONE (05:49)
[2020-02-27] MEDS: Morphine PCA 30 MG/ 30 ML 30 ML PCA.VIAL IVC PRN (06:00)
[2020-02-27] MEDS: polyethylene glycoL 3350 17 GM POWD.PACK PO SCH (07:48)
[2020-02-27] MEDS: Gabapentin 300 MG CAPSULE PO SCH ×3 (07:49→21:42)
[2020-02-27] MEDS: hydroCHLOROthiazide 25 MG TABLET PO SCH (07:49)
[2020-02-27] MEDS: Acetaminophen 325 MG TABLET PO PRN ×2 (07:58→14:55)
[2020-02-27] MEDS: Insulin LISPRO 300 UNITS/3 ML VIAL SQ SCH ×4 (08:00→21:36)
[2020-02-27] MEDS: clonazePAM 1 MG TABLET PO PRN (09:26)
[2020-02-27] MEDS: Diclofenac Sodium (24 HR) 100 MG TABLET PO PRN (10:32)
[2020-02-27] MEDS: Ondansetron 4 MG/2 ML VIAL IVP PRN (18:35)
[2020-02-27] MEDS: Melatonin 3 MG TABLET PO PRN (21:46)
[2020-02-28] MEDS: Acetaminophen 325 MG TABLET PO PRN ×3 (00:37→20:44)
[2020-02-28] MEDS: Ondansetron 4 MG/2 ML VIAL IVP PRN ×4 (03:37→22:22)
[2020-02-28 03:59] LABS: Hematocrit 34.5 % (35.3-44.9); Hemoglobin 11.5 g/dL (11.5-15.4); Mean Corpuscular HGB Conc 33.3 g/dL (31.6-35.5); Mean Corpuscular Hemoglobin 30.7 pg (28.0-33.3); Mean Platelet Volume 9.6 fL (9.4-12.4); Platelet Count 180 K/mcL (140-400); Red Blood Count 3.75 M/mcL (3.82-4.97); Red Cell Distribution Width 12.2 % (11.5-14.5)
[2020-02-28 04:17] LABS: BUN/Creatinine Ratio 38 (6-26); Blood Urea Nitrogen 20 mg/dL (6-20); Calcium 8.8 mg/dL (8.6-10.3); Carbon Dioxide 29 mEq/L (23-29); Chloride 100 mEq/L (98-107); Glucose 101 mg/dL (70-105); Osmolality,Calculated 287 (280-300); Potassium 3.8 mEq/L (3.5-5.1); Sodium 137 mEq/L (136-145); eGFR For African Americans > 60 (> 60); eGFR For Non-African Americans > 60 (> 60)
[2020-02-28] MEDS: Insulin LISPRO 300 UNITS/3 ML VIAL SQ SCH ×4 (07:52→20:45)
[2020-02-28] MEDS: hydroCHLOROthiazide 25 MG TABLET PO SCH (07:55)
[2020-02-28] MEDS: polyethylene glycoL 3350 17 GM POWD.PACK PO SCH (07:55)
[2020-02-28] MEDS: Gabapentin 300 MG CAPSULE PO SCH ×3 (07:55→20:44)
[2020-02-28] MEDS ORDERED: Sennosides 8.6 MG TABLET PO PRN (14:24)
[2020-02-28] MEDS: clonazePAM 1 MG TABLET PO PRN (20:44)
[2020-02-28] MEDS: Nystatin Cream 15 GM TUBE TP SCH (20:46)
[2020-02-28] MEDS: Melatonin 3 MG TABLET PO PRN (22:21)
[2020-02-29 03:50] LABS: Bacteria,Urine Few per hpf (None-Few); Bilirubin,Urine Negative (Negative); Blood,Urine Trace (Negative); Clarity,Urine Clear (Clear); Color,Urine Light-Yellow (Yellow); Glucose,Urine (UA) Normal (Normal); Ketones,Urine Negative (Negative); Leukocyte Esterase,Urine Moderate (Negative); Nitrite,Urine Negative (Negative); Protein,Urine Negative (Neg-Trace); RBC,Urine 0-3 per hpf (0-3); Specific Gravity,Urine 1.013 (1.010-1.025); Squamous Epithelial Cell,Urine Few per hpf (None-Few); Urobilinogen,Urine Normal (Normal); WBC,Urine 15-30 per hpf (0-3)
[2020-02-29 04:33] LABS: Mucus,Urine Few per lpf (None-Few)
[2020-02-29] MEDS: Ondansetron 4 MG/2 ML VIAL IVP PRN ×2 (08:58→17:00)
[2020-02-29] MEDS: Gabapentin 300 MG CAPSULE PO SCH ×3 (08:59→20:34)
[2020-02-29] MEDS: hydroCHLOROthiazide 25 MG TABLET PO SCH (08:59)
[2020-02-29] MEDS: polyethylene glycoL 3350 17 GM POWD.PACK PO SCH (09:01)
[2020-02-29] MEDS: Insulin LISPRO 300 UNITS/3 ML VIAL SQ SCH ×4 (09:03→20:34)
[2020-02-29] MEDS: clonazePAM 1 MG TABLET PO PRN (13:22)
[2020-02-29] MEDS ORDERED: Fluconazole 150 MG TABLET PO PRN (14:46)
[2020-02-29] MEDS: Nitrofurantoin (BID) 100 MG CAPSULE PO SCH (16:13)
[2020-02-29] MEDS: Nystatin Cream 15 GM TUBE TP SCH ×2 (16:53→22:13)
[2020-02-29] MEDS: Diclofenac Sodium (24 HR) 100 MG TABLET PO PRN (17:00)
[2020-02-29] MEDS: Lactobacillus 1 EACH CAP.SPRINK PO SCH (20:34)
[2020-02-29] MEDS ORDERED: polyethylene glycoL 3350 17 GM POWD.PACK PO PRN (21:00)
[2020-02-29] MEDS: Acetaminophen 325 MG TABLET PO PRN (22:10)
[2020-03-01] MEDS: Melatonin 3 MG TABLET PO PRN (00:20)
[2020-03-01] MEDS: clonazePAM 1 MG TABLET PO PRN ×2 (00:21→12:29)
[2020-03-01] MEDS: Ondansetron 4 MG/2 ML VIAL IVP PRN ×3 (00:24→15:06)
[2020-03-01 04:51] LABS: Basophils % 0.5 %; Eosinophils # 0.3 K/mcL (0.0-0.6); Eosinophils % 4.6 %; Hematocrit 34.3 % (35.3-44.9); Hemoglobin 11.1 g/dL (11.5-15.4); Immature Granulocytes % 2.1 % (0-4); Lymphocytes # 2.4 K/mcL (0.6-4.6); Lymphocytes % 43.3 %; Mean Corpuscular HGB Conc 32.4 g/dL (31.6-35.5); Mean Corpuscular Hemoglobin 29.6 pg (28.0-33.3); Mean Corpuscular Volume 91.5 fL (83.0-100.0); Mean Platelet Volume 9.5 fL (9.4-12.4); Monocytes # 0.5 K/mcL (0.0-1.3); Monocytes % 9.1 %; Neutrophils # 2.3 K/mcL (1.6-8.9); Platelet Count 188 K/mcL (140-400); Red Blood Count 3.75 M/mcL (3.82-4.97); Red Cell Distribution Width 12.3 % (11.5-14.5); Segmented Neutrophils % 40.4 %; White Blood Count 5.6 K/mcL (4.3-11.1)
[2020-03-01 04:54] LABS: BUN/Creatinine Ratio 32 (6-26); Blood Urea Nitrogen 22 mg/dL (6-20); Calcium 9.1 mg/dL (8.6-10.3); Carbon Dioxide 32 mEq/L (23-29); Chloride 101 mEq/L (98-107); Glucose 111 mg/dL (70-105); Osmolality,Calculated 294 (280-300); Potassium 3.5 mEq/L (3.5-5.1); Sodium 140 mEq/L (136-145); eGFR For African Americans > 60 (> 60); eGFR For Non-African Americans > 60 (> 60)
[2020-03-01] MEDS: Lactobacillus 1 EACH CAP.SPRINK PO SCH ×2 (07:48→20:28)
[2020-03-01] MEDS: polyethylene glycoL 3350 17 GM POWD.PACK PO SCH ×3 (07:48→20:28)
[2020-03-01] MEDS: hydroCHLOROthiazide 25 MG TABLET PO SCH (07:49)
[2020-03-01] MEDS: Nitrofurantoin (BID) 100 MG CAPSULE PO SCH ×2 (07:49→17:52)
[2020-03-01] MEDS: Gabapentin 300 MG CAPSULE PO SCH ×3 (07:49→20:27)
[2020-03-01] MEDS: Insulin LISPRO 300 UNITS/3 ML VIAL SQ SCH ×4 (07:54→20:28)
[2020-03-01] MEDS ORDERED: Bisacodyl 10 MG RECTAL SUPPOSITORY RC ONE (08:32)
[2020-03-01] MEDS: Acetaminophen 325 MG TABLET PO PRN ×2 (09:46→16:26)
[2020-03-01] MEDS: Nystatin Cream 15 GM TUBE TP SCH ×2 (09:53→20:29)
[2020-03-01] MEDS: Diclofenac Sodium (24 HR) 100 MG TABLET PO PRN (13:20)
[2020-03-01] MEDS ORDERED: Milk and Molasses Enema 200 ML RC ONE (20:00)
[2020-03-01] MEDS: clonazePAM 1 MG TABLET PO SCH (20:28)
[2020-03-02] MEDS: Insulin LISPRO 300 UNITS/3 ML VIAL SQ SCH ×4 (07:41→20:58)
[2020-03-02] MEDS: Ondansetron 4 MG/2 ML VIAL IVP PRN ×3 (07:48→20:41)
[2020-03-02] MEDS: clonazePAM 1 MG TABLET PO SCH ×2 (07:54→20:36)
[2020-03-02] MEDS: Acetaminophen 325 MG TABLET PO PRN ×3 (07:54→20:41)
[2020-03-02] MEDS: Lactobacillus 1 EACH CAP.SPRINK PO SCH ×2 (07:54→20:35)
[2020-03-02] MEDS: Gabapentin 300 MG CAPSULE PO SCH ×3 (07:54→20:35)
[2020-03-02] MEDS: Nitrofurantoin (BID) 100 MG CAPSULE PO SCH (07:55)
[2020-03-02] MEDS: hydroCHLOROthiazide 25 MG TABLET PO SCH (07:59)
[2020-03-02] MEDS: polyethylene glycoL 3350 17 GM POWD.PACK PO SCH ×2 (08:00→20:36)
[2020-03-02] MEDS ORDERED: Lactulose Oral Soln 20 GM/30 ML UDC PO SCH (09:00)
[2020-03-02] MEDS: Nystatin Cream 15 GM TUBE TP SCH ×2 (09:41→20:37)
[2020-03-02] MEDS: Diclofenac Sodium (24 HR) 100 MG TABLET PO PRN (11:55)
[2020-03-02] MEDS ORDERED: Milk and Molasses Enema 200 ML RC ONE (14:09)
[2020-03-02] MEDS ORDERED: *HR* HYDROmorphone PF 0.5 MG/0.5 ML SYRINGE IVP ONE (15:52)
[2020-03-02] MEDS ORDERED: *HR* Promethazine 25 MG/ML VIAL IM ONE (17:54)
[2020-03-02] MEDS: Melatonin 3 MG TABLET PO PRN (22:47)
[2020-03-03] MEDS: Acetaminophen 325 MG TABLET PO PRN ×2 (02:44→10:21)
[2020-03-03] MEDS: Ondansetron 4 MG/2 ML VIAL IVP PRN ×2 (02:47→10:01)
[2020-03-03] MEDS: Insulin LISPRO 300 UNITS/3 ML VIAL SQ SCH (07:51)
[2020-03-03] MEDS: polyethylene glycoL 3350 17 GM POWD.PACK PO SCH (08:20)
[2020-03-03] MEDS: hydroCHLOROthiazide 25 MG TABLET PO SCH (08:20)
[2020-03-03] MEDS: Lactobacillus 1 EACH CAP.SPRINK PO SCH (08:21)
[2020-03-03] MEDS: clonazePAM 1 MG TABLET PO SCH (08:22)
[2020-03-03] MEDS: Gabapentin 300 MG CAPSULE PO SCH ×2 (08:22→14:03)
[2020-03-03] MEDS: Nystatin Cream 15 GM TUBE TP SCH (10:01)
[2020-03-03 10:30] VITALS: BP 127/86
[2020-03-03] MEDS: Diclofenac Sodium (24 HR) 100 MG TABLET PO PRN (12:14)
== END 2020-03-03 14:58 ==
LOC: 3NENU 14:06 → EMEROOARM 14:06 → SUATTDRO 16:47 → 3NENU 17:09
PROVIDERS: ADMIT Student in an Organized Health Care Education/Training Program; ATTEND Internal Medicine